=== PATIENT | female | born 1980 | race Caucasian/White ===

== ENCOUNTER → 2017-10-19 | Day surgery (SDC) | payer BC ==
[~2017-10-19] MED LIST: COREG12.5 MG PO; DEXAMETHASONE SOD PHOS INJ 4 MG/ML VIAL ONE; FENTANYL; FENTANYL CITRATE/PF 100MCG/2 ML INJ ONE; IOPAMIDOL 610MG/1ML 300 MG/ML VIAL IV ONE; IOTHALAMATE MEGLUMINE 17.20% 250 ML BTL ONE; LEVOFLOXACIN 500MG/D5W 100ML 100 ML IV ONE; LIDOCAINE HCL 2% LOCAL INJ 5 ML SDV VIAL INJ ONE; LUNESTA3 MG PO; LYRICA75 MG PO; MELOXICAM7.5 MG PO; METOCLOPRAMIDE HCL 10 MG/2ML VIAL ONE; MIDAZOLAM HCL 2 MG/2 ML VIAL ONE; NUVARING VAGIN1 EACH VG; ONDANSETRON HCL INJ 2 MG/ML VIAL ONE; PANTOPRAZOLE SO40 MG PO; PHENTERMINE H37.5 M1 PO; PROPOFOL IV EMULSION 10 MG/ML 20 ML VIAL ONE; PROZAC20 MG PO; PYRIDIUM100 MG; SEROQUEL25 MG PO; SEVOFLURANE INHAL SOLN 250 ML PEN BTL ONE; VENTOLIN HFA18 GM IH; XANAX2 MG PO
[2017-10-19] MEDS: CEFTRIAXONE SOD 1 GM VIAL ONE (07:49)
[2017-10-19 08:24] LABS: BASOPHILS # (AUTO) 0.1 (0.0-0.1); BASOPHILS % 0.5 % (0.0-1.0); EOSINOPHILS # (AUTO) 0.1 (0.0-0.4); EOSINOPHILS % 1.5 % (0.0-6.0); HEMATOCRIT 42.6 % (34.2-44.1); LYMPHOCYTES % 52.2 % (18.0-39.1); MEAN CORPUSCULAR HEMOGLOBIN 25.1 pg (28-32); MEAN CORPUSCULAR HGB CONC 32.9 g/dL (31-35); MEAN CORPUSCULAR VOLUME 76.3 fL (81-99); MONOCYTES # (AUTO) 0.9 (0.2-0.8); MONOCYTES % 9.6 % (4.4-11.3); NEUTROPHILS # (AUTO) 3.4 (2.1-6.9); NEUTROPHILS % 35.8 % (38.7-80.0); PLATELET COUNT 348 x10e3/uL (140-360); RED BLOOD COUNT 5.58 x10e6/uL (3.6-5.1); RED CELL DISTRIBUTION WIDTH 14.3 % (11.7-14.4)
--- NOTE | 2017-10-19 14:59 | Operative Report ---
DATE OF PROCEDURE: October 19, 2017 PREOPERATIVE DIAGNOSIS 1. Multiple chronic urinary tract infections. 2. Question of colovesical fistula. 3. Clinical signs and symptoms of interstitial cystitis. POSTOPERATIVE DIAGNOSIS 1. Multiple chronic urinary tract infections. 2. Question of colovesical fistula. 3. Clinical signs and symptoms of interstitial cystitis. 4. Grade 3 cystocele. PROCEDURES 1. Cystogram (entirely separate procedure for multiple chronic urinary tract infections). 2. Cystourethroscopy with hydrodistention (entirely separate procedure for the clinical signs and symptoms of interstitial cystitis). 3. Cystourethroscopy with left ureteral catheterization and left retrograde pyelogram (separate procedure for the multiple chronic urinary tract infections). 4. Cystourethroscopy with right ureteral catheterization and right retrograde pyelogram (separate procedure for the multiple chronic urinary tract infections). 5. Supervision of fluoroscopy. 6. Interpretation of retrograde pyelography. ANESTHESIA: General. ESTIMATED BLOOD LOSS: Minimal. COMPLICATIONS: None. INDICATIONS FOR PROCEDURE: Mrs. Miles is a very pleasant 36-year-old female who has had a long-standing history of clinical symptoms of urinary tract infections as well as interstitial cystitis. She has had previous cystoscopies. However, she is concerned now for a fistula, question of interstitial cystitis. She voiced her understanding of the options, of the alternatives, the risks and benefits and elected to proceed with cystoscopy, retrograde pyelograms, all indicated procedures including hydrodistention and cystogram. PROCEDURE IN DETAIL: After informed consent was obtained, the patient was taken to the operative suite, and she was placed supine on the operating table. She underwent general anesthesia by the anesthesia service, was placed in the dorsal lithotomy position and sterilely prepped and draped in the standard fashion for cystoscopy. A grade 3 cystocele was noted, and the patient had been given prophylactic antibiotics. The 22.5-Chadian cystoscope was inserted per urethra, and a normal urethra was noted. Panendoscopy of the bladder revealed no tumors, no stones. Both ureteral orifices were in their normal anatomical location and position and were seen to efflux clear urine. Bilateral retrograde pyelograms were performed, which were normal. Hydrodistention was performed with a capacity of 1000 mL, no glomerulations, no Hunner's ulcers. A cystogram was performed, and it revealed a normal capacity bladder. There was no extravasation, no evidence of fistula, normal-appearing bladder. At this time, the bladder was drained, and the patient was awakened from anesthesia and transported to the recovery room in excellent condition. SUPERVISION OF FLUOROSCOPY AND INTERPRETATION OF RETROGRADE URETEROPYELOGRAMS WELL CYSTOGRAM: I was present throughout the entire procedure, and I supervised the use of fluoroscopy. There was no radiologist present at any time during this procedure. Attention was turned toward the bladder and bilateral ureteral orifices, which were catheterized, and retrograde pyelogram and cystogram were performed. The cystogram minimum of 3 views was normal. Normal capacity. No evidence of extravasation, no evidence of fistula, normal shape. Bilateral retrograde pyelograms revealed delicate ureters, delicate pelvocaliceal systems, no evidence of filling defects, no evidence of hydronephrosis. IMPRESSION: Normal retrograde pyelograms. The patient's family and patient were explicitly instructed to only use AZO Standard or Pyridium for 3 days and to follow up as an outpatient for results. Job#: [id number]
== END | disposition home or self-care (01) ==
LOC: OR 06:45
PROVIDERS: ATTEND Urology
DX: N39.0 Urinary tract infection, site not specified (principal); R31.29 Other microscopic hematuria; N81.10 Cystocele, unspecified; N28.1 Cyst of kidney, acquired; N20.0 Calculus of kidney; I10 Essential (primary) hypertension; E66.01 Morbid (severe) obesity due to excess calories; Z68.42 Body mass index [BMI] 45.0-49.9, adult; F41.8 Other specified anxiety disorders; J45.909 Unspecified asthma, uncomplicated; K21.9 Gastro-esophageal reflux disease without esophagitis; G89.29 Other chronic pain; Z01.810 Encounter for preprocedural cardiovascular examination; Z01.812 Encounter for preprocedural laboratory examination; Z88.1 Allergy status to other antibiotic agents; Z88.5 Allergy status to narcotic agent; Z88.0 Allergy status to penicillin; Z88.2 Allergy status to sulfonamides
CPT/HCPCS: 36415; 74430; 81025; 85025; 93005; J0696; J1100; J1956; J2001; J2250; J2405; J2765; Q9958